=== PATIENT | female | born 1945 | race Caucasian/White ===

== ENCOUNTER → 2019-01-22 | Outpatient (CLI) | payer MEDICARE, BC ==
--- NOTE | 2019-01-22 14:53 | NM ---
EXAMINATION TYPE: NM bone/joint limited DATE OF EXAM: 01/22/2019 COMPARISON: NONE HISTORY: Pain TECHNIQUE: After the intravenous administration of 22.9 mCi Tc 99m MDP. Images acquired pelvis and knees hours post injection. Photopenic defect involving the right hip compatible with previous hip replacement surgery. Faint are a of increased uptake near the lesser trochanter and tip of the prostheses within the proximal diaphy sis. Abnormal uptake involving L5-S1 on the left likely degenerative. Photopenic defect involving the knee bilaterally suggestive of joint replacement surgery. Abnormal up take in the surrounding marrow likely reactive. More intense abnormal uptake involving the proximal t ibia is seen adjacent to the prosthetic knee. IMPRESSION: 1. 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
== END | disposition home or self-care (01) ==
LOC: RADNMMAIN 10:48
PROVIDERS: ATTEND Orthopaedic Surgery
DX: M25.551 Pain in right hip (principal); M25.561 Pain in right knee; Z96.641 Presence of right artificial hip joint; Z96.651 Presence of right artificial knee joint
CPT/HCPCS: 78300; A9503

== ENCOUNTER → 2019-04-02 | Outpatient (CLI) | payer MEDICARE ==
[2019-04-02 12:44] LABS: Albumin 4.4 g/dL (3.5-5.0); Calcium 9.7 mg/dL (8.4-10.2); Potassium 4.5 mmol/L (3.5-5.1); Total Bilirubin 0.6 mg/dL (0.2-1.3); Total Protein 7.2 g/dL (6.3-8.2)
[2019-04-02 12:46] LABS: HCT 43.9 % (34.0-46.0); HGB 14.8 gm/dL (11.4-16.0); INR 0.9 (<1.2); MCH 30.2 pg (25.0-35.0); MCHC 33.8 g/dL (31.0-37.0); MCV 89.4 fL (80.0-100.0); Mean Platelet Volume 7.6; Partial Thromboplastin Time 23.2 sec (22.0-30.0); Platelet Count 203 k/uL (150-450); Prothrombin Time 9.6 sec (9.0-12.0); RBC 4.91 m/uL (3.80-5.40); WBC 4.8 k/uL (3.8-10.6)
[2019-04-02 13:49] LABS: Appearance,Urine Cloudy (Clear); Bacteria,Urine Few /hpf; Bilirubin,Urine Negative (Negative); Blood,Urine Trace (Negative); Color,Urine Yellow; Glucose,Urine (UA) Negative (Negative); Ketones,Urine Negative (Negative); Leukocyte Esterase,Urine Large (Negative); Mucus,Urine Rare /hpf; Nitrite,Urine Positive (Negative); Protein,Urine Negative (Negative); RBC,Urine 2 /hpf (0-5); Specific Gravity,Urine 1.013 (1.001-1.035); Squamous Epithelial Cell,Urine <1 /hpf (0-4); Urobilinogen,Urine <2.0 mg/dL (<2.0); WBC,Urine 30 /hpf (0-5)
== END | disposition home or self-care (01) ==
LOC: LABPAT 11:18
PROVIDERS: ATTEND Orthopaedic Surgery
DX: Z01.818 Encounter for other preprocedural examination (principal); Z01.812 Encounter for preprocedural laboratory examination; Z79.01 Long term (current) use of anticoagulants
CPT/HCPCS: 36415; 80053; 81001; 85027; 85610; 85730; 87070; 93005